=== PATIENT | male | born 1985 | race Hispanic/Latino ===

== ENCOUNTER 2018-09-11 21:33 | Emergency (ER) | payer OTHER ==
[~2018-09-11] VITALS: Ht 188 cm; Wt 102.1 kg
[2018-09-11 22:08] LABS: BASOPHILS % 0.5 % (0.0-1.0); EOSINOPHILS # (AUTO) 0.2 (0.0-0.4); EOSINOPHILS % 2.4 % (0.0-6.0); HEMATOCRIT 44.1 % (38.2-49.6); HEMOGLOBIN 14.9 g/dL (14.0-18.0); LYMPHOCYTES # (AUTO) 2.9 (1.0-3.2); LYMPHOCYTES % 39.1 % (18.0-39.1); MEAN CORPUSCULAR HEMOGLOBIN 28.4 pg (28-32); MEAN CORPUSCULAR HGB CONC 33.8 g/dL (31-35); MONOCYTES # (AUTO) 0.8 (0.2-0.8); MONOCYTES % 10.5 % (4.4-11.3); NEUTROPHILS # (AUTO) 3.5 (2.1-6.9); NEUTROPHILS % 47.4 % (38.7-80.0); PLATELET COUNT 215 x10e3/uL (140-360); RED BLOOD COUNT 5.25 x10e6/uL (4.3-5.7); RED CELL DISTRIBUTION WIDTH 12.8 % (11.7-14.4)
[2018-09-11 22:31] LABS: ALANINE AMINOTRANSFERASE 77 IU/L (0-55); ALBUMIN 4.1 g/dL (3.5-5.0); ALBUMIN/GLOBULIN RATIO 1.1 (0.8-2.0); ALKALINE PHOSPHATASE 82 IU/L (40-150); ANION GAP 14.1 mmol/L (8-16); BLOOD UREA NITROGEN 16 mg/dL (7-26); BUN/CREATININE RATIO 14 (6-25); CALCIUM 9.5 mg/dL (8.4-10.2); CARBON DIOXIDE 28 mmol/L (22-29); CHLORIDE 105 mmol/L (98-107); CREATININE, SERUM 1.17 mg/dL (0.72-1.25); EST GLOMERULAR FILTRATION RATE > 60 ML/MIN (60-); GLUCOSE 89 mg/dL (74-118); POTASSIUM 4.1 mmol/L (3.5-5.1); SODIUM 143 mmol/L (136-145)
--- NOTE | 2018-09-11 22:55 | Diagnostic Imaging Report ---
Exam: AP view of the chest Indication: Chest pain Comparison: None Findings: The lungs are clear. No pleural effusions or pneumothorax. Normal appearance of cardiomediastinal silhouette and bones. Impression: Normal chest x-ray. Signed by: Dr. Kristal Virk M.D. on 09/11/2018 10:51 PM
[2018-09-11 23:07] VITALS: BP 140/82
== END 2018-09-11 23:11 | disposition home or self-care (01) ==
LOC: FSED 21:33
DX: R07.89 Other chest pain (principal); K20.9 Esophagitis, unspecified
CPT/HCPCS: 36415; 71045; 80053; 82553; 84484; 85025; 99283